=== PATIENT | female | born 1945 | race Caucasian/White ===

== ENCOUNTER 2016-11-05 10:28 | Emergency (ER) | payer OTHER, MEDICARE ==
[2016-11-05 11:19] LABS: HEMOGLOBIN 12.6 gm/dl (12.3-15.3); RED BLOOD COUNT 4.11 M/UL (4.00-5.10); WHITE BLOOD COUNT 11.7 K/UL (4.5-11.0)
[2016-11-05 11:43] LABS: BUN/CREATININE RATIO 60 (0-10)
[2017-05-09] MEDS ORDERED: NEXIUM40 MG PO (07:29)
[2017-05-09] MEDS ORDERED: LASIX40 MG PO (07:29)
[2017-05-09] MEDS ORDERED: SYMBICORT 160-1 INHA INH (07:29)
[2017-05-09] MEDS ORDERED: MOBIC15 MG PO (07:30)
[2017-05-09] MEDS ORDERED: TRAZODONE HCL50 MG PO (07:30)
[2017-05-09] MEDS ORDERED: BENICAR40 MG PO (07:31)
[2017-05-09] MEDS ORDERED: FLONASE 0.05% N16 GM (07:31)
[2017-05-09] MEDS ORDERED: NEURONTIN 300300 MG PO (07:32)
[2017-05-09] MEDS ORDERED: ASPIR-LOW81 MG PO (07:32)
[2017-05-09] MEDS ORDERED: NAPROSYN500 MG PO (07:32)
[2017-05-09] MEDS ORDERED: LIPITOR TAB 2020 MG PO (07:33)
[2017-05-09] MEDS ORDERED: PREDNISONE5 MG PO (07:33)
[2017-05-09] MEDS ORDERED: NORCO 7.5-3251 EACH PO (11:29)
== END 2016-11-05 17:50 | disposition home or self-care (01) ==
LOC: ER1 10:28
PROVIDERS: Student in an Organized Health Care Education/Training Program
DX: S80.02XA Contusion of left knee, initial encounter (principal); S80.12XA Contusion of left lower leg, initial encounter; N39.0 Urinary tract infection, site not specified; I47.1 Supraventricular tachycardia; J44.9 Chronic obstructive pulmonary disease, unspecified; I11.0 Hypertensive heart disease with heart failure; I50.9 Heart failure, unspecified; V43.52XA Car driver injured in collision with other type car in traffic accident, initial encounter; Y93.89 Activity, other specified; Y92.410 Unspecified street and highway as the place of occurrence of the external cause
CPT/HCPCS: 36415; 70450; 71260; 72125; 73564; 73590; 80053; 81001; 82550; 82553; 83874; 84484; 85025; 85610; 85730; 87077; 87086; 87186; 93005; 96361; 96374; 99291; J0153; J7050; Q9962

== ENCOUNTER → 2016-11-21 | Outpatient (CLI) | payer MEDICARE, OTHER ==
[~2016-11-21] MED LIST: ASPIR-LOW81 MG PO; BENICAR40 MG PO; FLONASE 0.05% N16 GM; LASIX40 MG PO; LIPITOR TAB 2020 MG PO; MOBIC15 MG PO; NAPROSYN500 MG PO; NEURONTIN 300300 MG PO; NEXIUM40 MG PO; NORCO 7.5-3251 EACH PO; PREDNISONE5 MG PO; SYMBICORT 160-1 INHA INH; TRAZODONE HCL50 MG PO
== END ==
LOC: KOH-I 10:59
DX: S89.90XA Unspecified injury of unspecified lower leg, initial encounter (principal); S89.91XS Unspecified injury of right lower leg, sequela
CPT/HCPCS: 73590

== ENCOUNTER → 2016-11-22 | Outpatient (CLI) | payer MEDICARE, OTHER | LOC: CT 13:00 | DX: E04.1 Nontoxic single thyroid nodule (principal); N20.0 Calculus of kidney; K44.9 Diaphragmatic hernia without obstruction or gangrene | CPT/HCPCS: 76536 ==

== ENCOUNTER → 2016-11-28 | Outpatient (CLI) | payer MEDICARE, OTHER | LOC: US 14:47 | DX: M79.605 Pain in left leg (principal); R60.9 Edema, unspecified; R93.8 Abnormal findings on diagnostic imaging of other specified body structures | CPT/HCPCS: 93971 ==

== ENCOUNTER → 2017-01-02 | Outpatient (CLI) | payer OTHER | LOC: KOH-I 10:47 | DX: S83.241A Other tear of medial meniscus, current injury, right knee, initial encounter (principal); S83.281A Other tear of lateral meniscus, current injury, right knee, initial encounter; S83.411A Sprain of medial collateral ligament of right knee, initial encounter | CPT/HCPCS: 73721 ==

== ENCOUNTER → 2017-01-10 | Outpatient (CLI) | payer OTHER, MEDICARE | LOC: HEART 5 08:54 | DX: I50.32 Chronic diastolic (congestive) heart failure (principal) | CPT/HCPCS: 93306 ==

== ENCOUNTER → 2017-01-14 | Outpatient (CLI) | payer OTHER, MEDICARE | LOC: KOH-I 15:18 | DX: R05 Cough (principal) | CPT/HCPCS: 71020 ==

== ENCOUNTER → 2017-04-25 | Outpatient (CLI) | payer OTHER, MEDICARE | LOC: KOH-I 10:01 | DX: M54.40 Lumbago with sciatica, unspecified side (principal); M51.36 Other intervertebral disc degeneration, lumbar region; M43.16 Spondylolisthesis, lumbar region; V89.2XXA Person injured in unspecified motor-vehicle accident, traffic, initial encounter | CPT/HCPCS: 72110 ==

== ENCOUNTER 2021-08-11 21:17 | Emergency (ER) | payer MEDICARE, OTHER ==
[~2021-08-11 21:17] MED LIST changes: +ADALAT CC30 MG PO; +ALBUTEROL SULFATE INH; +IPRAT-ALBUT 0.5-3 ML NEB; +K-DUR TAB 10 M10 MEQ PO; +LEVAQUIN750 MG PO; +LEXAPRO10 MG PO; +LIDOCAINE PAIN1 EACH TOP; +LORTAB 5-325 M1 EACH PO; +MEDROL4 MG PO; +MUCINEX600 MG PO; +NEXIUM20 MG PO; +NORFLEX 100 MG100 MG PO; +SINGULAIR10 MG PO; +VANCOMYCIN HCL1 GM IV; +VITAMIN D250000 UNIT PO; +VITAMIN E400 UNI2 PO; +ZYRTEC10 MG PO
== END 2021-08-12 00:19 | disposition home or self-care (01) ==
LOC: ER1 21:17
DX: S01.112A Laceration without foreign body of left eyelid and periocular area, initial encounter (principal); S01.511A Laceration without foreign body of lip, initial encounter; J44.9 Chronic obstructive pulmonary disease, unspecified; W19.XXXA Unspecified fall, initial encounter
CPT/HCPCS: 70450; 70486; 71045; 72125; 90471; 99283

== ENCOUNTER → 2021-12-26 | Outpatient (CLI) | payer MEDICARE | LOC: KOH-I 12:27 | DX: S01.21XA Laceration without foreign body of nose, initial encounter (principal); M47.812 Spondylosis without myelopathy or radiculopathy, cervical region; W19.XXXA Unspecified fall, initial encounter | CPT/HCPCS: 70150; 72040 ==

== ENCOUNTER → 2022-03-27 | Outpatient (CLI) | payer MEDICARE | LOC: KOH-I 11:18 | DX: M54.6 Pain in thoracic spine (principal); R06.00 Dyspnea, unspecified; M47.814 Spondylosis without myelopathy or radiculopathy, thoracic region | CPT/HCPCS: 71046; 72070 ==

== ENCOUNTER → 2022-04-10 | Outpatient (CLI) | payer MEDICARE | LOC: GENOP 11:46 | DX: U07.1 COVID-19 (principal); M25.569 Pain in unspecified knee | CPT/HCPCS: M0222; Q0222 ==